=== PATIENT | female | born 1955 | race Caucasian/White ===

== ENCOUNTER 2025-05-01 14:39 | Emergency (ER) | payer MEDICARE, OTHER ==
[2025-05-01] MEDS ORDERED: Ketorolac Tromethamine 30 MG (1 mL) VIAL ONE (16:30)
[2025-05-01] MEDS ORDERED: HYDROcodone/Acetaminophen 5/325 mg Tablet ONE (16:30)
[2025-05-01] MEDS ORDERED: PROPOFOL 20 ML ONE (17:32)
[2025-05-01] MEDS ORDERED: Bacitracin 1 PK ONE (18:27)
== END 2025-05-01 19:20 | disposition home or self-care (01) ==
LOC: ERS 14:39
DX: S52.572A Other intraarticular fracture of lower end of left radius, initial encounter for closed fracture (principal); S00.03XA Contusion of scalp, initial encounter; I10 Essential (primary) hypertension; F17.210 Nicotine dependence, cigarettes, uncomplicated; Z79.82 Long term (current) use of aspirin; Z79.899 Other long term (current) drug therapy; W01.10XA Fall on same level from slipping, tripping and stumbling with subsequent striking against unspecified object, initial encounter; Y92.524 Gas station as the place of occurrence of the external cause
CPT/HCPCS: 25605; 70450; 73110; 96372; 99152; 99153; 99283; J1885; J2704